=== PATIENT | female | born 1955 | race Caucasian/White ===

== ENCOUNTER 2016-09-30 10:32 | Outpatient (CLI) | payer OTHER ==
--- NOTE | 2016-09-30 16:43 | DIAGNOSTIC IMAGING REPORT ---
PROCEDURE: US NONVASCULAR EXT LTD - LEFT INDICATION: CYST ON LEFT KNEE TECHNIQUE: Roque scale and color Doppler sonographic images through the popliteal fossa were obtained. COMPARISON: None. FINDINGS: There is a Cooley's cyst in the medial popliteal fossa of the left knee. The cyst measures 5.3 x 2.3 x 1.7 cm and contains septations. IMPRESSION: 1. 5.3 x 2.3 x 1.7 cm Cooley's cyst left popliteal fossa
--- NOTE | 2016-09-30 16:59 | DIAGNOSTIC IMAGING REPORT ---
PROCEDURE: US ECHOCARDIOGRAM INDICATION: Obesity, lower extremity edema, hypertension TECHNIQUE: Technically adequate study. Continuous wave Doppler of the aortic valve was inadvertently not performed although study is still adequate as aortic valve visually appears normal. COMPARISON: None FINDINGS: Left ventricle: Normal size. Mild concentric left ventricular hypertrophy. Normal wall motion. Normal left ventricular ejection fraction of 60-65%. Grade 1 diastolic dysfunction. Right ventricle: Normal size and function. Left atrium: Normal size. Right atrium: Normal size Aortic valve: [place]. Visually the aortic valve does not appears stenotic although continuous wave Doppler of the valve was not performed. However given normal appearance of valve again, we say that aortic valve stenosis is not present. No insufficiency. Mitral valve: Normal in structure and function with trace physiologic insufficiency. Tricuspid valve: Normal in structure and function with trace physiologic insufficiency. Right ventricular systolic pressure is estimated 19 mmHg which is normal. Pulmonic valve: Normal in structure and function IMPRESSION: Normal left ventricular ejection fraction at 66% Mild concentric left ventricular hypertrophy Grade 1 diastolic dysfunction All valves normal in structure and function
== END 2016-09-30 23:00 ==
LOC: US SRH 10:32
DX: R60.9 Edema, unspecified (principal); E66.9 Obesity, unspecified; M71.22 Synovial cyst of popliteal space [Baker], left knee; I10 Essential (primary) hypertension